=== PATIENT | female | born 1930 | race Caucasian/White ===

== ENCOUNTER → 2016-08-09 | Outpatient (CLI) | payer MEDICARE, OTHER, MEDICAID ==
[~2016-08-09] MED LIST: ACET-62 PO; ACET325T51 PO; ACET650S14 RECTALLY; ALBU2.5V7 INH; AMLO10TA57 PO; AMOX-348 PO; ASPI-558 PO; BISA10SU30 RC; CARV25TA2 PO; DOCU-118 PO; DONE5TAB14 PO; GLUC1KIT3 IM; HYDR-3989 PO; INSU100V SQ; INSU100V8 SQ; LEVO50TA69 PO; LORA0.5T2 PO; LOSA50TA52 PO; MAGN800O4 PO; MEMA10TA11 PO; OMEP20CA10 PO; POLY119P21 PO; [UNRECOGNIZED DRUG - CODE] PO; [UNRECOGNIZED DRUG - OTHER] PO
== END ==
LOC: NWCC 10:21
PROVIDERS: ATTEND Internal Medicine
DX: L89.893 Pressure ulcer of other site, stage 3 (principal); Z87.898 Personal history of other specified conditions; Z79.4 Long term (current) use of insulin; I50.9 Heart failure, unspecified; F03.90 Unspecified dementia, unspecified severity, without behavioral disturbance, psychotic disturbance, mood disturbance, and anxiety; J44.9 Chronic obstructive pulmonary disease, unspecified; E03.9 Hypothyroidism, unspecified; F41.8 Other specified anxiety disorders; M19.90 Unspecified osteoarthritis, unspecified site; I12.9 Hypertensive chronic kidney disease with stage 1 through stage 4 chronic kidney disease, or unspecified chronic kidney disease; E11.22 Type 2 diabetes mellitus with diabetic chronic kidney disease; N18.9 Chronic kidney disease, unspecified; B35.1 Tinea unguium; Z72.3 Lack of physical exercise
CPT/HCPCS: 11042; A6209; G0463

== ENCOUNTER → 2016-08-23 | Outpatient (CLI) | payer MEDICARE, OTHER, MEDICAID | LOC: NWCC 09:57 | PROVIDERS: ATTEND Internal Medicine | DX: L89.892 Pressure ulcer of other site, stage 2 (principal) | CPT/HCPCS: 97597; A6209; G0463 ==

== ENCOUNTER → 2016-09-13 | Outpatient (CLI) | payer MEDICARE, OTHER, MEDICAID | LOC: NWCC 09:59 | PROVIDERS: ATTEND Internal Medicine | DX: L89.893 Pressure ulcer of other site, stage 3 (principal); Z87.898 Personal history of other specified conditions | CPT/HCPCS: 11042; A6196; A6210 ==